=== PATIENT | female | born 1980 | race Two or more races ===

== ENCOUNTER 2020-10-19 08:50 | Outpatient (REF) | payer OTHER, SELFPAY | END 2020-10-19 08:51 | disposition home or self-care (01) | LOC: HO.HMGCLDS 08:50 | PROVIDERS: PCP Internal Medicine; Visit Provider Internal Medicine | DX: Z13.89 Encounter for screening for other disorder (principal) ==

== ENCOUNTER 2020-10-19 08:52 | Outpatient (REF) | payer OTHER, SELFPAY ==
[2020-10-19 11:22] LABS: MANUAL DIFF FLAG NO
[2020-10-19 11:38] LABS: Basophils Percent Auto 0.5 % (0-2); Eosinophils Absolute Auto 0.1 X10*3/uL (0.0-0.4); Eosinophils Percent Auto 2.1 % (0-4); Hematocrit 36.9 % (37-47); Hemoglobin 12.3 g/dl (12.0-16.0); Imm Gran Abs Auto 0.01 X10*3/uL (0.00-0.03); Imm Gran Pct Auto 0.2 % (0.0-0.4); Lymphocytes Absolute Auto 2.6 X10*3/uL (1.2-4.9); Lymphocytes Percent Auto 42.5 % (20-40); Mean Corpuscular HGB Conc 33.3 g/dl (31.0-35.0); Mean Corpuscular Hemoglobin 30.3 pg (27.0-33.0); Mean Corpuscular Volume 90.9 fL (80-98); Monocytes Absolute Auto 0.7 X10*3/uL (0.1-1.2); Monocytes Percent Auto 11.5 % (2-11); Neutrophils Absolute Auto 2.6 X10*3/uL (2.0-8.3); Neutrophils Percent Auto 43.2 % (45-73); Platelet Count 248 X10*3/uL (160-400); Red Blood Count 4.06 X10*6/uL (4.20-5.50); Red Cell Distribution Width 12.8 % (11.0-16.0); White Blood Count 6.1 X10*3/uL (4.8-10.8)
[2020-10-19 12:23] LABS: Alanine Aminotransferase 20 U/L (0-31); Albumin Level 4.2 g/dL (3.5-5.0); Alkaline Phosphatase 56 U/L (39-117); Anion Gap 12 (12-20); Aspartate Amino Transferase 17 U/L (5-31); Bilirubin Total 0.6 mg/dL (0.0-1.0); Blood Urea Nitrogen 13 mg/dL (9-16); Calcium 9.1 mg/dL (8.4-10.2); Carbon Dioxide 27 mmol/L (22-29); Chloride 105 mmol/L (96-108); Cholesterol 184 mg/dL; Estimated Glomerular Filt Rate > 60; Glucose Fasting 96 mg/dL (60-99); HDL Cholesterol 88 mg/dL; Iron 124 mcg/dL (30-160); LDL Cholesterol Calculated 88 mg/dl; Percent Iron Saturation 38 % (15-50); Potassium 4.1 mmol/L (3.3-5.1); Sodium 140 mmol/L (135-145); Total Iron Binding Capacity 326 mcg/dL (228-428); Total Protein 7.1 g/dL (6.5-8.0); Triglycerides 41 mg/dL; Unsaturated Iron Binding 202 ug/dL
[2020-10-24 02:36] LABS: HPV mRNA E6/E7 Not Detected (Not Detected)
== END 2020-10-19 08:53 | disposition home or self-care (01) ==
LOC: HO.LAB 08:52
PROVIDERS: Visit Provider Internal Medicine
DX: Z00.00 Encounter for general adult medical examination without abnormal findings (principal); Z12.4 Encounter for screening for malignant neoplasm of cervix; Z11.51 Encounter for screening for human papillomavirus (HPV); J45.909 Unspecified asthma, uncomplicated
CPT/HCPCS: 36415; 80053; 80061; 83540; 84443; 85025; 87624; 88142

== ENCOUNTER 2021-01-03 16:21 | Outpatient (REF) | payer OTHER, SELFPAY ==
[2021-01-04 09:54] LABS: CT PCR NOT DETECTED (Not Detect.); NG PCR NOT DETECTED (Not Detect.)
== END 2021-01-03 16:22 | disposition home or self-care (01) ==
LOC: HO.LNP 16:21
PROVIDERS: Visit Provider Internal Medicine
DX: N76.0 Acute vaginitis (principal)
CPT/HCPCS: 87491; 87591

== ENCOUNTER 2023-09-08 12:48 | Outpatient (AMB) | payer OTHER, SELFPAY ==
[2023-09-08 12:52] VITALS: BP 108/66; PULSE 72; O2SAT 98; BMI 28.5
--- NOTE | 2023-09-08 12:52 | MHC.PC.OV ---
Vital Signs 09/08/23 12:52 Height 4 ft 11 in Weight 141 lb BMI 28.5 BP 108/66 Blood Pressure Location Lt brachial Position Sitting Pulse 72 Pulse Source Pulse Oximeter Pulse Oximetry (%) 98 Oxygen Delivery Method Room Air Intake Visit Reasons: Asthma Intake Note: Pt is here today for a follow up visit. Allergies levofloxacin [Levaquin] Allergy (Unknown, Verified 09/08/23 12:55) stomach pain vomiting Medication List - Last Reconciled 09/08/23 by Sue Gallego MD albuterol sulfate 90 mcg/actuation 2 puffs inhalation Q6H fluticasone furoate-vilanterol 100-25 mcg/dose (Breo Ellipta) 1 ea PO DAILY lorazepam 0.5 mg PO DAILY PRN montelukast 10 mg PO DAILY Tobacco use date assessed: 09/08/23 Dental Screening Dental Screen Date: 09/08/23 Did you have a dental visit in the last 12 months?: Yes Did you have a dental problem in the last 6 months where you did not have access to dental care?: No Was dental information given to patient?: Patient has dentist HPI Asthma HPI Details Patient presents complaining of worsening asthma control for the last 2 weeks. Patient has not been using Breo for over a year. She has been using albuterol inhaler only occasionally but more recently over last 2 weeks. Patient has stopped taking montelukast a year ago. She has been exposed to a cat recently and she is allergic to cats. She is scheduled to have abdominoplasty in [place] in September. [facility] Medical History UTI (urinary tract infection) Vaginitis Bunion of great toe of right foot Blepharitis of eyelid of left eye Memory deficit Annual physical exam Allergic rhinitis Asthma Anxiety Surgical History Hx of section H/O bilateral breast reduction surgery No pertinent past surgical history Family History Mother Diabetes Asthma Father Colon cancer Hypertension Social History Housing: House Alcohol intake: current Alcohol intake frequency: holidays/special occasions only Patient Tobacco Use Status: Never used Tobacco e-Cigarette/Vaping Use: Never Used Second Hand Smoke Exposure: No service: No Current occupational status: employed 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 1. Little interest or pleasure in doing things: several days 2. Feeling down, depressed, or hopeless: several days 3. Trouble falling or staying asleep, or sleeping too much: more than half the days 4. Feeling tired or having little energy: several days 5. Poor appetite or overeating: several days 6. Feeling bad about yourself - or that you are a failure or have let yourself or your family down: several days 7. Trouble concentrating on things, such as reading the newspaper or watching television: several days 8. Moving or speaking so slowly that other people could have noticed. Or the opposite - being so fidgety or restless that you have been moving around a lot more than usual: not at all 9. Thoughts that you would be better off or of hurting yourself in some way: not at all Total score: 8 Depression Screening Interpretation: Negative Depression Screening Done: Yes Source: Developed by Drs. Darrel Lamb, Tori Miguel, Josep Pink and colleagues, with an educational eleno from [employer]. Thrive Questionnaire Date Thrive assessed: 09/08/23 I am a: Patient What is your living situation today?: I have a steady place to live Within the past 12 months, did the food you bought not last and you didn't have the money to get more?: Never true Within the past 12 months, did you worry whether your food would run out before you got money to buy more?: Sometimes True Do you have trouble paying for medicines?: No Do you have trouble getting transportation to medical appointments?: No Do you have trouble paying your heating and electricity bill?: No Do you have trouble taking care of your child, family member or friend?: No Do you have trouble with day-to-day activities such as bathing, preparing meals, shopping, managing finances, etc.?: No Are you currently unemployed and looking for a job?: No Are you interested in more education?: No Please select the resources that you would like help with: None THRIVE Score: 1 AUDIT C Alcohol Use Questionnaire (AUDIT-C) 1. How often do you have a drink containing alcohol?: Monthly or less 2. How many drinks containing alcohol do you have on a typical day when you are drinking?: 1 or 2 3. How often do you have six or more drinks on one occasion?: Never Total Score: 1 RUFINA-7 AMB Questionnaire RUFINA-7 Date RUFINA - 7 assessed: 09/08/23 Feeling nervous, anxious, or on edge: 2 = More than half the days Not being able to stop or control worryin = Several days Worrying too much about different things: 2 = More than half the days Trouble relaxin = Several days Being so restless that it is hard to sit still: 0 = Not at all Becoming easily annoyed or irritable: 1 = Several days Feeling afraid as if something awful might happen: 0 = Not at all Total RUFINA-7 score (0-4 normal; 5-9 mild; 10-14 moderate; 15-21 severe): 7 Source: Developed by Drs. Darrel Lamb, Tori Miguel, Josep Pink and colleagues, with an educational eleno from [employer]. ACT Questionnaire In the past 4 weeks, how much of the time did your asthma keep you from getting as much done at work, school or at home?: A little of the time During the past 4 weeks, how often have you had shortness of breath?: More than once a day During the past 4 weeks, how often did your asthma symptoms wake you up at night or earlier than usual in the morning?: 2-3 nights a week During the past 4 weeks, how often have you had to use your rescue inhaler or nebulizer medication?: 2-3 times a week How would you rate your asthma control during the past 4 weeks?: Poorly controlled Score: 12 Review of Systems Const All systems reviewed & are unremarkable except as noted in HPI and below Reports no additional complaints Eyes Reports no additional complaints ENT Reports no additional complaints Card Reports no additional complaints Resp Reports no additional complaints GI Reports no additional complaints Reports no additional complaints Physical exam (Primary Care) Vital Signs: Last Vital Signs Pulse 72 09/08/23 12:52 BP 108/66 09/08/23 12:52 Pulse Ox 98 09/08/23 12:52 Oxygen Delivery Method Room Air 09/08/23 12:52 BMI result Body Mass Index 28.5 Tobacco/Smoking Status: Tobacco use Status Tobacco use date assessed 09/08/23 09/08/23 13:02 Patient Tobacco Use Status Never used Tobacco 09/08/23 13:02 e-Cigarette/Vaping Use Never Used 09/08/23 13:02 PHQ-9: PHQ-9 Score PHQ-9: Total score 8 09/08/23 13:42 Depression Screening Interpretation: Negative Thrive Assessment: Date of Thrive Assessment Date Thrive assessed 09/08/23 09/08/23 13:41 Const General: no acute distress HENMT Mouth: Normal oral and palatal mucosa present Resp Effort & Inspection: normal respiratory effort Auscultation: clear to auscultation bilaterally Cardio Rhythm: regular rhythm Heart sounds: S1 normal heart sound present and S2 normal heart sound present GI Inspection: Yes normal to inspection Palpation (GI): Soft to palpation Assessment and Plan Assessment & Plan (1) Annual physical exam: Code(s): Z00.00 - Encounter for general adult medical examination without abnormal findings Plan: Patient will return for physical with a fasting labs before (2) Asthma: Code(s): J45.909 - Unspecified asthma, uncomplicated Plan: restart Breo and montelukast. Patient will use albuterol as needed she will follow-up in 2 months Orders: Orders UA w Microscopic 1 Month J45.909 - Unspecified asthma, uncomplicated, Z00.00 - Encounter for general adult medical examination without abnormal findings Comprehensive Harris. Panel Fast 1 Month J45.909 - Unspecified asthma, uncomplicated, Z00.00 - Encounter for general adult medical examination without abnormal findings Complete Blood Count Auto Diff 1 Month J45.909 - Unspecified asthma, uncomplicated, Z00.00 - Encounter for general adult medical examination without abnormal findings Lipid Panel 1 Month J45.909 - Unspecified asthma, uncomplicated, Z00.00 - Encounter for general adult medical examination without abnormal findings TSH reflex Free T4 1 Month J45.909 - Unspecified asthma, uncomplicated, Z00.00 - Encounter for general adult medical examination without abnormal findings Medications: New meloxicam 15 mg PO DAILY 20 tabs 0RF Refilled montelukast 10 mg PO DAILY 90 tabs 3RF fluticasone furoate-vilanterol 100-25 mcg/dose (Breo Ellipta) 1 ea PO DAILY 60 caps 3RF J45.909 - Unspecified asthma, uncomplicated Coding Level of Care Code Est Pt Level 3 (37127) Diagnoses Annual physical exam Z00.00 Asthma J45.909
== END 2023-09-08 15:15 | disposition home or self-care (01) ==
PROVIDERS: PCP Internal Medicine; Visit Provider Internal Medicine
DX: J45.909 Unspecified asthma, uncomplicated (principal)
CPT/HCPCS: 99213

== ENCOUNTER 2023-09-29 09:42 | Outpatient (REF) | payer OTHER, SELFPAY ==
--- NOTE | 2023-09-29 11:38 | PFT_ITS ---
Flows: FEV1: 83 % of predicted at 2.06 L FVC: 85 % of predicted at 2.57 L FEV1/FVC: 80 % Bronchodilator response: Absent Volumes: Total lung capacity: 91 % of predicted at 3.97 L Residual volume: 127 % of predicted at 1.43 L Slow vital capacity: 78 % of predicted at 2.54 L Expiratory reserve volume: 56 % of predicted at 0.52 L Diffusion capacity: Normal Impression: No obstructive or restrictive ventilatory defect. No bronchodilator response. Increased residual volume suggests air trapping. MTDD
== END 2023-09-29 09:43 | disposition home or self-care (01) ==
LOC: HO.RESP 09:42
PROVIDERS: PCP Internal Medicine; Visit Provider Internal Medicine
DX: J45.909 Unspecified asthma, uncomplicated (principal)
CPT/HCPCS: 94010; 94640; 94727; 94729

== ENCOUNTER → 2023-09-29 11:38 | Outpatient (BNV) | payer OTHER, SELFPAY | PROVIDERS: PCP Internal Medicine; Visit Provider Internal Medicine Pulmonary Disease | DX: J45.909 Unspecified asthma, uncomplicated (principal) | CPT/HCPCS: 94060; 94727; 94729 ==

== ENCOUNTER 2023-10-03 08:27 | Outpatient (REF) | payer OTHER, SELFPAY ==
[2023-10-03 11:08] LABS: MANUAL DIFF FLAG NO
[2023-10-03 11:18] LABS: Basophils Percent Auto 0.4 % (0-2); Eosinophils Absolute Auto 0.2 X10*3/uL (0.0-0.4); Eosinophils Percent Auto 3.6 % (0-4); Hematocrit 34.7 % (37.0-47.0); Hemoglobin 11.7 g/dl (12.0-16.0); Imm Gran Abs Auto 0.02 X10*3/uL (0.00-0.03); Imm Gran Pct Auto 0.4 % (0.0-0.4); Lymphocytes Absolute Auto 1.6 X10*3/uL (1.2-4.9); Lymphocytes Percent Auto 28.6 % (20-40); Mean Corpuscular HGB Conc 33.7 g/dl (31.0-35.0); Mean Corpuscular Hemoglobin 29.8 pg (27.0-33.0); Mean Corpuscular Volume 88.5 fL (80.0-98.0); Mean Platelet Volume 11.1 fL (9.4-12.3); Monocytes Absolute Auto 0.6 X10*3/uL (0.1-1.2); Monocytes Percent Auto 10.5 % (2-11); Neutrophils Absolute Auto 3.2 x10*3/uL (2.0-8.3); Neutrophils Percent Auto 56.5 % (45-73); Platelet Count 254 X10*3/uL (160-400); Red Blood Count 3.92 X10*6/uL (4.20-5.50); Red Cell Distribution Width 12.3 % (11.0-16.0); White Blood Count 5.6 X10*3/uL (4.8-10.8)
[2023-10-03 11:19] LABS: Appearance Urine Clear; Color Urine Yellow; Glucose Urine UA Negative (Negative); Leukocyte Esterase Urine Negative (Negative); Nitrite Urine Negative (Negative); PH 6.5 (5.0-9.0); Specific Gravity - Urine 1.025 (1.005-1.025); UMIC TRIGGER UA YES; Urine Blood Moderate (2+) (Negative); Urine Ketones Negative (Negative); Urine Protein Negative (Neg-Trace)
[2023-10-03 11:23] LABS: Bacteria Urine None Seen (None Seen); Hyaline Casts Urine 0-2 /LPF (0-2); Squamous Epithelial Cell Urine 0-2 /HPF (0-2); WBC Urine 0-5 /HPF (0-5)
[2023-10-03 12:11] LABS: Alanine Aminotransferase 17 U/L (0-31); Albumin Level 4.2 g/dL (3.5-5.0); Alkaline Phosphatase 59 U/L (39-117); Anion Gap 12 (12-20); Aspartate Amino Transferase 17 U/L (5-31); Bilirubin Total 0.5 mg/dL (0.0-1.0); Blood Urea Nitrogen 11 mg/dL (9-16); Calcium 9.1 mg/dL (8.4-10.2); Carbon Dioxide 22 mmol/L (22-29); Chloride 109 mmol/L (96-108); Cholesterol 176 mg/dL (<200); Estimated Glomerular Filt Rate > 60; Glucose Fasting 95 mg/dL (60-99); HDL Cholesterol 76 mg/dL (>40); LDL Cholesterol Calculated 94 mg/dL (<100); Potassium 3.7 mmol/L (3.3-5.1); Sodium 139 mmol/L (135-145); Total Protein 7.3 g/dL (6.5-8.0); Triglycerides 34 mg/dL (<150)
[2023-10-03 12:28] LABS: TSH reflex Free T4 0.74 uIU/mL (0.32-4.0)
== END 2023-10-03 08:28 | disposition home or self-care (01) ==
LOC: HO.HMGCLDS 08:27
PROVIDERS: PCP Internal Medicine; Visit Provider Internal Medicine
DX: Z00.00 Encounter for general adult medical examination without abnormal findings (principal); J45.909 Unspecified asthma, uncomplicated
CPT/HCPCS: 36415; 80053; 80061; 81001; 84443; 85025

== ENCOUNTER 2023-10-09 11:59 | Outpatient (AMB) | payer OTHER, SELFPAY ==
[2023-10-09 12:02] VITALS: BP 96/64; PULSE 69; O2SAT 98; BMI 29.3
--- NOTE | 2023-10-09 12:02 | A.OFFPC_ITS ---
Vital Signs 10/09/23 12:02 Height 4 ft 11 in Weight 145 lb BMI 29.3 BP 96/64 Blood Pressure Location Rt brachial Position Sitting Pulse 69 Pulse Source Pulse Oximeter Pulse Oximetry (%) 98 Oxygen Delivery Method Room Air Intake Visit Reasons: Pre op surgery on 10/19/23 Intake Note: Pt is here today for a a pre op visit. Allergies levofloxacin [Levaquin] Allergy (Unknown, Verified 09/08/23 12:55) stomach pain vomiting Tobacco use date assessed: 09/08/23 Dental Screening Dental Screen Date: 09/08/23 HPI Pre op surgery on 10/19/23 HPI Details Pt presents for pre op for abdominoplasty. Asthma is well controlled on Breo and montelukast. Patient had pulmonary function tests done. She denies shortness or breath cough wheezing. Patient has been taking iron supplement for chronic borderline iron deficiency due to heavy menses. [facility] Medical History (Updated 10/09/23 @ 12:40 by Sue Gallego MD) UTI (urinary tract infection) Vaginitis Bunion of great toe of right foot Blepharitis of eyelid of left eye Memory deficit Annual physical exam Allergic rhinitis Asthma Anxiety Surgical History Hx of section H/O bilateral breast reduction surgery No pertinent past surgical history Family History Mother Diabetes Asthma Father Colon cancer Hypertension Social History Housing: House Alcohol intake: current Alcohol intake frequency: holidays/special occasions only Patient Tobacco Use Status: Never used Tobacco e-Cigarette/Vaping Use: Never Used Second Hand Smoke Exposure: No service: No Current occupational status: employed 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 Darrel Lamb, Tori Miguel, Josep [employer] and colleagues, with an educational eleno from [employer]. Review of Systems Const All systems reviewed & are unremarkable except as noted in HPI and below ENT Reports no additional complaints Card Reports no additional complaints Resp Reports no additional complaints GI Reports no additional complaints Reports no additional complaints Physical exam (Primary Care) Vital Signs: Last Vital Signs Pulse 69 10/09/23 12:02 BP 96/64 10/09/23 12:02 Pulse Ox 98 10/09/23 12:02 Oxygen Delivery Method Room Air 10/09/23 12:02 BMI result Body Mass Index 29.3 Tobacco/Smoking Status: Tobacco use Status Tobacco use date assessed 09/08/23 10/09/23 12:03 Patient Tobacco Use Status Never used Tobacco 10/09/23 12:03 e-Cigarette/Vaping Use Never Used 10/09/23 12:03 Thrive Assessment: Date of Thrive Assessment Date Thrive assessed 09/08/23 10/09/23 12:03 Const General: no acute distress HENMT Head: Yes normal to inspection Ears: hearing grossly normal bilaterally Face and sinus: Yes normal facial exam Eyes General: appearance normal, both eyes and all related structures Neck Neck: Yes no lymphadenopathy and Yes supple Resp Effort & Inspection: normal respiratory effort Auscultation: clear to auscultation bilaterally Cardio Rhythm: regular rhythm Heart sounds: S1 normal heart sound present and S2 normal heart sound present GI Inspection: Yes normal to inspection Palpation (GI): Soft to palpation Percussion: Yes normal to percussion Auscultation: normal bowel sounds Assessment and Plan Assessment & Plan (1) Annual physical exam: Code(s): Z00.00 - Encounter for general adult medical examination without abnormal findings Plan: Well-balanced diet regular physical activity discussed with the patient. (2) Anemia: Code(s): D64.9 - Anemia, unspecified Plan: Patient will continue iron supplement (3) Asthma: Comment: PFT 09/22 FEV1 84% Code(s): J45.909 - Unspecified asthma, uncomplicated Plan: Continue Breo and montelukast and albuterol p.r.n. Plan Patient is medically cleared for abdominoplasty Orders: Orders IRON PROFILE Today D64.9 - Anemia, unspecified, Z00.00 - Encounter for general adult medical examination without abnormal findings Prolactin, Total and Monomeric Today D64.9 - Anemia, unspecified, Z00.00 - Encounter for general adult medical examination without abnormal findings Vitamin B12 and Folate Today D64.9 - Anemia, unspecified, Z00.00 - Encounter for general adult medical examination without abnormal findings Coding Level of Care Code Est Pt Level 3 (48745) Diagnoses Annual physical exam Z00.00 Anemia D64.9 Asthma J45.909
== END 2023-10-09 12:41 | disposition home or self-care (01) ==
PROVIDERS: PCP Internal Medicine; Visit Provider Internal Medicine
DX: Z01.818 Encounter for other preprocedural examination (principal); D64.9 Anemia, unspecified; J45.909 Unspecified asthma, uncomplicated
CPT/HCPCS: 99213

== ENCOUNTER 2023-10-09 12:35 | Outpatient (REF) | payer OTHER, SELFPAY ==
[2023-10-09 16:23] LABS: Iron 93 mcg/dL (30-160); Percent Iron Saturation 34 % (15-50); Total Iron Binding Capacity 273 mcg/dL (228-428); Unsaturated Iron Binding 180 ug/dL
[2023-10-09 16:56] LABS: Vitamin B12 505 pg/mL (200-900)
[2023-10-16 19:09] LABS: Prolactin Monomeric 5.8 ng/mL (3.2-25.2); Prolactin, Total 23.6 ng/mL
== END 2023-10-09 12:36 | disposition home or self-care (01) ==
LOC: HO.HMGCLDS 12:35
PROVIDERS: PCP Internal Medicine; Visit Provider Internal Medicine
DX: Z00.00 Encounter for general adult medical examination without abnormal findings (principal); D64.9 Anemia, unspecified
CPT/HCPCS: 36415; 82607; 82746; 83540; 84146

== ENCOUNTER 2023-11-20 14:35 | Outpatient (AMB) | payer OTHER, SELFPAY ==
[2023-11-20 14:40] VITALS: BP 108/72; PULSE 72; TEMP 36.6; O2SAT 98
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
--- OUTSIDE RECORDS SUMMARY | 2023-11-26 06:58 | XMS_ITS | Continuity of Care Document ---
Author Organization [facility] Address [address] [place] [address]- Care Team Providers Care Automotive Service Advisor Name Role Phone Sue Gallego MD Primary Care Physician [phone] Encounter [facility] Date(s): 11/27/21 - 01/27/[address] [address] Discharge Disposition: A-D/C Home Attending Physician: Sue Gallego MD Admitting Physician: Sue Gallego MD Referring Physician: Sue Gallego MD Allergies, Adverse Reactions, Alerts Substance Reaction Severity Status [facility] Active Immunizations Given and Recorded Vaccine Date Status Refusal Reason SARS-CoV-2 (COVID-19) mRNA-1273 vaccine 04/20/21 R ecorded SARS-CoV-2 (COVID-19) mRNA-1273 vaccine 07/02/20 R ecorded SARS-CoV-2 (COVID-19) mRNA-1273 vaccine 06/04/20 R ecorded Medications Albuterol/Ipratropium Inhaler PRN, Refills 0, Maintenance, 02/05/16 15:19:41 Start Date: 02/05/16 Status: Ordered Breo Ellipta Inhalation, Daily, 0 Refills, Maintenance, 02/05/16 15:07:07 Start Date: 02/05/16 Status: Ordered PredniSONE By Mouth, Daily, 0 Refills, Maintenance, 06/23/21 15:52:00 EST, Partial fill upon patient request if the prescription is for a schedule II opioid drug. Start Date: 06/23/21 Status: Ordered Singulair By Mouth, Daily, 0 Refills, Maintenance, 06/23/21 15:51:00 EST, Partial fill upon patient request if the prescription is for a schedule II opioid drug. Start Date: 06/23/21 Status: Ordered Problem List Condition Effective Dates Status Health Status Inform ant Asthma(Confirmed) Active H/O: multiple allergies(Confirmed) Active Care Team Personnel Name: Sue Gallego MD Address: [address], [place] [address]
--- OUTSIDE RECORDS SUMMARY | 2023-11-26 06:58 | XMS_ITS | Continuity of Care Document ---
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 & Belongings ?? 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 Glasses ?? Inhaler Valuables Sent Home ? Rings ? Valuables Sent to Security ? Other Discharge Information ? Case Management Discharge Plan?? Discharge Plan?? Discharge Agency Information?? Discharge Level of Care at Discharge: Inpatient Rehab Facility/Unit Name of Agency #1: [facility] Discharge Transportation Arranged: [facility] [address] [facility] ??[phone] Agency Senior Center Director #1: Admissions Mode of Transportation Arranged: Ambulance Service Categories #1: Occupational Therapy, Physical Therapy, Mcc, Tablet Making Machine Operator Helper Discharge Arranged Transport Date/Time: 11/07/23 12:00:00 Name of Person Notified of Transfer: Dominic Dahl Discharge Nursing Homes/Rehab Facilities: [facility] Name of Receiving Clinician/Provider: A provider will be assigned to you at the facility ?? Phone Number of Receiving Facility: [facility] ?? Pulmonary Rehab Status?? Pulmonary Rehab Discharge Status?? Respiratory Rate: 16 br/min ? Common Emergency Awareness Tips IS IT A STROKE? Act FAST and Check for these signs: FACE Does the face look uneven? ARM Does one arm drift down? SPEECH Does their speech sound strange? TIME Call at any sign of stroke ?? Heart Attack Signs Chest discomfort: Most heart attacks involve discomfort in the center of the chest and lasts more than a few minutes, or goes away and comes back. It can feel like uncomfortable pressure, squeezing, fullness or pain. Discomfort in upper body: Symptoms can include pain or discomfort in one or both arms, back, neck, jaw or stomach. Shortness of breath: With or without discomfort. Other signs: Breaking out in a cold sweat, nausea, or lightheaded. Remember, MINUTES DO MATTER. If you experience any of these heart attack warning signs, call to get immediate medical attention! ?? Smoking can increase your chances of developing chronic health problems and can cause harmful effects to other family members in your house. If you smoke, you are strongly encouraged to quit. Please call [email or web address] Link at [phone] or [phone] ([phone]) or log in to [email or web address] for referrals to smoking cessation programs. ?? 811 Suicide & Crisis Lifeline is available 22/12 if you or someone you know needs to find a reason to keep living. By calling 283 you'll be connected to a skilled, trained counselor at a crisis center in your area. INPATIENT DISCHARGE INSTRUCTIONS SIGNATURE PAGE DOMINIC DAHL Location:[facility] Registration Date and Time:11/03/2023 16:42 EDT Primary Care Physician: Sue Gallego MD, Attending Physician: Dl Lopez MD, I DOMINIC DAHL, have received the above patient education materials/instructions and have verbalized understanding. If ambulance or transport services are being used I further acknowledge being given a choice of service. ?? If you need to contact me, please call me at this number: . 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 Name: 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 Signature: Relationship to Patient: Witness Name/Signature: Date: * Dl Lopez MD: PERFORM, SIGN, VERIFY Event Display: Patient Education Handout Authored Date: [id number] Patient Care team information Care Team Personnel Name: Sue Gallego MD Position: [facility] Physician - Primary Care Member Role: PCP Address: Address: [address] [place] [address]- Name: Josselyn Mayes RN Position: [facility] SN RN Member Role: Primary Care Nurse Name: Veronica Gunderson RN Position: [facility] RN Member Role: Primary Care Nurse Name: Zohreh Lorenzo RN Position: [facility] RN Member Role: Primary Care Nurse Name: Cr Pineda RN Position: [facility] RN Member Role: Primary Care Nurse Care Team Related Persons Name: MANOJ YARBROUGH Address: home [address] [place] [address] Name: PATI CHAVARRIA Address: home [address] [place] [address] Name: PRERNA FINCH Address: home [address] [place] [address]
--- OUTSIDE RECORDS SUMMARY | 2023-11-26 06:58 | XMS_ITS | Continuity of Care Document ---
Author Organization [facility] Address [address] [place] [address]- Care Team Providers Care Medical Photographer Name Role Phone Sue Gallego MD Primary Care Physician [phone] [place] [facility] [place] 11/18/21 - 12/18/[address] [address]- Allergies, Adverse Reactions, Alerts Substance Reaction Severity [...]
--- OUTSIDE RECORDS SUMMARY | 2023-11-26 06:58 | XMS_ITS | Continuity of Care Document ---
Author Organization [facility] Address [address] [place] [address]- Care Team Providers Care Supervisor Forming Department Name Role Phone Sue Gallego MD Primary Care Physician Encounter [facility] [place] Date(s): 11/27/21 - 12/27/[address] [address] Attending Physician: [id number] Admitting Physician: Admtr, Ruslan8 Referring Physician: Admtr, Ar8 Allergies, Adverse Reactions, Alerts Substance Reaction Severity [...]
--- OUTSIDE RECORDS SUMMARY | 2023-11-26 06:58 | XMS_ITS | Continuity of Care Document ---
Author Organization [facility] Address [address] [place] [address]- Care Team Providers Care Hook Loader Name Role Phone Sue Gallego MD Primary Care Physician [id number] Date(s): 10/19/21 - 11/24/[address] [address] Attending Physician: Sue Gallego MD Admitting Physician: [...] 02/05/16 15:07:07 Start Date: 02/05/16 Status: Ordered ketoconazole 2% topical cream 1 application, Topically, Daily, for 14 days, Apply to affected skin as needed, # 30 Gm, 0 Refills,Acute 12/02/21 11:02:00 EDT, 11/18/21 11:02:00 EDT, [facility] Partial fillupon patient request if the prescription is for a s... Start Date: 11/18/21 Stop Date: 12/02/21 Status: Ordered PredniSONE By Mouth, Daily, 0 [...]
--- OUTSIDE RECORDS SUMMARY | 2023-11-26 06:58 | XMS_ITS | Continuity of Care Document ---
Author Organization [facility] Address [address] [place] [address]- Care Team Providers Care Manager Of Selection And Assessment Name Role Phone Sue Gallego MD Primary Care Physician Encounter [facility] Date(s): 04/08/23 - 05/08/[address] [email or web address] Attending Physician: Admtr, Ar8 Admitting Physician: Admtr, Ar8 Referring Physician: Admtr, Ar8 Allergies, Adverse Reactions, [...] Date: 06/23/21 Status: Ordered Problem List Condition Confirmation Course Effective Dates Status Health St atus Informant Asthma Confirmed Active H/O: multiple allergies Confirmed Active Patient Care team information Care Team Personnel Name: Sue Gallego MD Position: [facility] Physician - Primary Care Member Role: PCP Address: Address: [address] [place] [address]- Name: Josselyn Mayes RN Position: [facility] SN RN Member Role: Primary Care Nurse Name: Zohreh Lorenzo RN Position: [facility] RN Member Role: Primary Care Nurse Care Team Related Persons Name: MANOJ YARBROUGH Address: home [address] [place] [address] Name: PATI CHAVARRIA Address: [address] [place] [address] Name: PRERNA FINCH Address: home [address] [place] [address]
--- OUTSIDE RECORDS SUMMARY | 2023-11-26 06:58 | XMS_ITS | Continuity of Care Document ---
Author Organization [facility] Address [address] [place] [address]- Care Team Providers Care Locomotive Operator Helper Name Role Phone Sue Gallego MD Primary Care Physician [phone] [place] [facility] [place] Date(s): 05/11/19 - 05/21/[address] [address] Attending Physician: Raina Hawk Admitting Physician: AdmRaina godoy Referring Physician: Admtr, Ar8 Allergies, Adverse Reactions, Alerts Substance Reaction Severity Status Levaquin Active Medications Albuterol/Ipratropium Inhaler PRN, Refills 0, Maintenance, 02/05/16 15:19:41 Start Date: 02/05/16 Status: Ordered Breo Ellipta Inhalation, Daily, 0 Refills, Maintenance, 02/05/16 15:07:07 Start Date: 02/05/16 Status: Ordered Problem List Condition Effective Dates Status Health Status Inform ant Asthma(Confirmed) Active H/O: multiple allergies(Confirmed) Active
--- OUTSIDE RECORDS SUMMARY | 2023-11-26 06:58 | XMS_ITS | Continuity of Care Document ---
Author Organization [facility] Address [address] [place] [address]- Care Team Providers Care School Age Teacher Name Role Phone Sue Gallego MD Primary Care Physician [phone] Encounter [facility] Date(s): 05/16/20 - 06/15/[address] [address]- Attending Physician: Raina Hawk Admitting Physician: Raina Hawk Referring Physician: AdmtrRaina Allergies, Adverse Reactions, Alerts Substance Reaction Severity Status Levaquin Active Medications Albuterol/Ipratropium Inhaler PRN, Refills 0, Maintenance, 02/05/16 15:19:41 Start Date: 02/05/16 Status: Ordered Breo Ellipta Inhalation, Daily, 0 Refills, Maintenance, 02/05/16 15:07:07 Start Date: 02/05/16 Status: Ordered Problem List Condition Effective Dates Status Health Status Inform ant Asthma(Confirmed) Active H/O: multiple allergies(Confirmed) Active
--- OUTSIDE RECORDS SUMMARY | 2023-11-26 06:58 | XMS_ITS | Continuity of Care Document ---
Author Organization [facility] Address [address] [place] [address]- Care Team Providers Care Machine Operator Cane Cutter Name Role Phone Sue Gallego MD Primary Care Physician Encounter [facility] Date(s): 06/30/19 - 06/30/[address] [address]- [facility] Attending Physician: Sue Gallego MD Allergies, Adverse Reactions, [...]
== END 2023-11-20 15:46 | disposition home or self-care (01) ==
PROVIDERS: PCP Internal Medicine; Visit Provider Physician Assistant
DX: I82.491 Acute embolism and thrombosis of other specified deep vein of right lower extremity (principal)
CPT/HCPCS: 99214

== ENCOUNTER 2023-11-20 15:02 | Outpatient (REF) | payer OTHER, SELFPAY ==
--- NOTE | ~2023-11-20 | US_ITS ---
EXAMINATION: US VENOUS ULTRASOUND WITH DOPPLER LOWER EXTREMITY, RIGHT CLINICAL INFORMATION: Pain in the right lower leg COMPARISON: None available. TECHNIQUE: Ultrasound of the deep veins is performed from the hip to the calf with compression sonography and color and pulse Doppler assessment. Spectral analysis with color-flow imaging is performed. FINDINGS: The common femoral vein is compressible and exhibits a normal phasic waveform; this suggests that the iliac veins are widely patent above. Within the proximal thigh, the visualized profunda femoris vein is normal. The examined greater saphenous vein and saphenofemoral junction are normal. Superficial femoral vein is patent in the proximal, mid and distal thigh. Popliteal vein is normal to the level of the trifurcation. On compression harvey scale and color Doppler images, the visualized posterior tibial vein is normal. There appears to be noncompressible occlusive thrombus involving a peroneal vein. No evidence of Mendoza's cyst. US/US venous duplex LE RT IMPRESSION: * There are imaging findings of deep vein thrombosis of a peroneal vein in the right calf. * No evidence of venous thrombosis in the femoral or popliteal veins. The critical test result was given to Jackie Corrales at 3:25 pm n 11/20/2023 by the US technologist and it was ascertained that the content and the importance of the findings was understood at the time of the direct communication.
== END 2023-11-20 15:03 | disposition home or self-care (01) ==
LOC: HO.HMGCX 15:02
PROVIDERS: PCP Internal Medicine; Visit Provider Physician Assistant
DX: M79.661 Pain in right lower leg (principal)
CPT/HCPCS: 93971

== ENCOUNTER 2023-11-26 09:50 | Outpatient (AMB) | payer OTHER, SELFPAY ==
[2023-11-26 09:57] VITALS: BP 100/64; PULSE 83; O2SAT 99; BMI 29.1
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
== END 2023-11-26 10:53 | disposition home or self-care (01) ==
LOC: HO.HMGC 09:50
PROVIDERS: PCP Internal Medicine; Visit Provider Internal Medicine
DX: S32.9XXA Fracture of unspecified parts of lumbosacral spine and pelvis, initial encounter for closed fracture (principal); S32.10XA Unspecified fracture of sacrum, initial encounter for closed fracture; I82.491 Acute embolism and thrombosis of other specified deep vein of right lower extremity; F41.9 Anxiety disorder, unspecified
CPT/HCPCS: 99214

== ENCOUNTER 2024-01-11 09:12 | Outpatient (AMB) | payer OTHER, SELFPAY ==
[2024-01-11 09:25] VITALS: BP 106/70; PULSE 82; O2SAT 98; BMI 30.1
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
== END 2024-01-11 10:15 | disposition home or self-care (01) ==
PROVIDERS: PCP Internal Medicine; Visit Provider Internal Medicine
DX: F41.9 Anxiety disorder, unspecified (principal); S32.9XXA Fracture of unspecified parts of lumbosacral spine and pelvis, initial encounter for closed fracture; S32.10XA Unspecified fracture of sacrum, initial encounter for closed fracture; I82.491 Acute embolism and thrombosis of other specified deep vein of right lower extremity
CPT/HCPCS: 99214

== ENCOUNTER 2024-02-08 09:45 | Outpatient (AMB) | payer OTHER, SELFPAY ==
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
[2024-02-08 09:47] VITALS: BP 102/66; PULSE 73; O2SAT 98; BMI 30.1
== END 2024-02-08 15:22 | disposition home or self-care (01) ==
PROVIDERS: PCP Internal Medicine; Visit Provider Internal Medicine
DX: S32.10XA Unspecified fracture of sacrum, initial encounter for closed fracture (principal); S32.9XXA Fracture of unspecified parts of lumbosacral spine and pelvis, initial encounter for closed fracture; I82.491 Acute embolism and thrombosis of other specified deep vein of right lower extremity; F41.9 Anxiety disorder, unspecified
CPT/HCPCS: 99214

== ENCOUNTER 2024-08-17 11:09 | Outpatient (AMB) | payer OTHER, SELFPAY ==
[2024-08-17 12:00] VITALS: BP 118/84; PULSE 95; TEMP 36.9; O2SAT 98; BMI 30.5
--- NOTE | 2024-08-17 12:00 | AM.OFFWIN_ITS ---
Intake Vital Signs 08/17/24 12:00 Height 4 ft 11 in Weight 151 lb 4 oz BMI 30.5 BP 118/84 Blood Pressure Location Lt brachial Position Sitting Pulse 95 Pulse Source Pulse Oximeter Temp 98.5 F Temp Source Oral Pulse Oximetry (%) 98 Oxygen Delivery Method Room Air Intake Visit Reasons: EP-cough Intake Note: Pt presents to the office today for c/o cough, chest congestion and facial pressure x4 days. Patient Tobacco Use Status: Never used Tobacco Allergies levofloxacin [Levaquin] Allergy (Unknown, Verified 08/17/24 12:00) stomach pain vomiting HPI EP-cough HPI Details This is a 43-year-old female patient who presents to the walk-in clinic today with a 5-6 day history of non productive, persistent cough.. She also reports facial/sinus pressure. She denies any fever or chills. Denies any GI symptoms. Denies any shortness of breath, however does experience coughing fits which can cause this. History of asthma. On Breo inhaler, and requesting albuterol inhaler refill. [facility] Medical History Anxiety UTI (urinary tract infection) Vaginitis Bunion of great toe of right foot Blepharitis of eyelid of left eye Memory deficit Annual physical exam Allergic rhinitis Asthma Surgical History Hx of section H/O bilateral breast reduction surgery No pertinent past surgical history Family History Mother Diabetes Asthma Father Colon cancer Hypertension Social History Housing: House Alcohol intake: current Alcohol intake frequency: holidays/special occasions only Patient Tobacco Use Status: Never used Tobacco e-Cigarette/Vaping Use: Never Used Second Hand Smoke Exposure: No service: No Current occupational status: employed 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 Current occupational exposures/hazards: No Cognitive needs: No Hearing needs: No Vision needs: Yes Review of Systems Const All systems reviewed & are unremarkable except as noted in HPI and below Physical Exam Vital Signs: Last Vital Signs Temp 98.5 F 08/17/24 12:00 Pulse 95 08/17/24 12:00 BP 118/84 08/17/24 12:00 Pulse Ox 98 08/17/24 12:00 Oxygen Delivery Method Room Air 08/17/24 12:00 BMI result Body Mass Index 30.5 Const General: cooperative, healthy appearing and no acute distress HEENT Head: Yes normal to inspection Ears: hearing grossly normal bilaterally and TM's normal bilaterally General nose exam: Normal external nose present Face and sinus: Yes sinus tenderness (frontal/maxillary) Mouth: Normal oral and palatal mucosa present Throat: Yes posterior oropharynx normal Neck Neck: Yes no lymphadenopathy Resp Effort & Inspection: normal respiratory effort, able to speak in complete sentences and Actively coughing Quality: actively coughing Auscultation: clear to auscultation bilaterally Cardio Rate: regular rate Rhythm: regular rhythm Skin General skin exam: no rashes or lesions noted Extrem General: Yes capillary refill normal and Yes no clubbing, cyanosis or edema Psych Appearance: grossly normal Mental Status: mental status grossly normal Speech and movement: Normal speech and movement present Assessment & Plan Assessment & Plan (1) Sinusitis, acute: Code(s): J01.90 - Acute sinusitis, unspecified Qualifiers: Sinusitis location: frontal Recurrence: non-recurrent Qualified Code(s): J01.10 - Acute frontal sinusitis, unspecified Plan: Will start her on a short course of prednisone and also azithromycin. We reviewed indications, use, possible side effects of these medications. She has taken both of these previously without any issue. I will refill her albuterol inhaler as requested. Declines viral testing. Advised her to return to the clinic as needed if she does not improve with treatment, or if symptoms worsen/new symptoms develop. She verbalizes understanding and agrees to plan. Work note provided. (2) Cough in adult: Code(s): R05.9 - Cough, unspecified Plan: As above Medications: New azithromycin For 250 mg dose pack: take 500 mg today (day 1), then 250 mg for 4 days (days 2-5) PO 6 tabs 0RF J06.9 - Acute upper respiratory infection, uns pecified albuterol sulfate 90 mcg/actuation 2 puffs inhalation Q6H 6.7 grams 1RF prednisone 20 mg PO BID 3 days 6 tabs 0RF J01.10 - Acute frontal sinusitis, unspecified, R05.9 - Cough, unspecified Coding Level of Care Code Est Pt Level 4 (34600) Diagnoses Acute non-recurrent frontal sinusitis J01.10 Sinusitis location: frontal Recurrence: non-recurrent Cough in adult R05.9
== END 2024-08-17 12:38 | disposition home or self-care (01) ==
PROVIDERS: PCP Internal Medicine; Visit Provider Nurse Practitioner Family
DX: J01.10 Acute frontal sinusitis, unspecified (principal); R05.9 Cough, unspecified

== ENCOUNTER → 2024-08-17 11:09 | Outpatient (BNVA) | payer OTHER, SELFPAY | PROVIDERS: PCP Internal Medicine; Visit Provider Nurse Practitioner Family ==

== ENCOUNTER 2024-09-12 11:42 | Outpatient (AMB) | payer OTHER, SELFPAY ==
[2024-09-12 11:47] VITALS: BP 110/74; PULSE 82; RESP 18; TEMP 36.7; O2SAT 99; BMI 30.3
--- NOTE | 2024-09-12 11:47 | MHC.PC.OV ---
Vital Signs 09/12/24 11:47 Height 4 ft 11 in Weight 150 lb BMI 30.3 BP 110/74 Blood Pressure Location Lt brachial Position Sitting Respiration 18 Pulse 82 Pulse Source Pulse Oximeter Temp 98.0 F Temp Source Oral Pulse Oximetry (%) 99 Oxygen Delivery Method Room Air Intake Visit Reasons: Followup allergies, needs work note Intake Note: Pt is here today for a follow up visit on allergies. Pt states that she needs a work note. Allergies levofloxacin [Levaquin] Allergy (Unknown, Verified 08/17/24 12:00) stomach pain vomiting cat dander Allergy (Verified 09/12/24 11:58) induces asthma,itchy dog dander Allergy (Verified 09/12/24 11:58) induces asthma, itchy Medication List - Last Reconciled 09/12/24 by Sue Gallego MD albuterol sulfate 90 mcg/actuation 2 puffs inhalation Q6H Breo Ellipta 200-25 mcg/dose (fluticasone furoate-vilanterol) 1 inh inhalation DAILY NS fluticasone furoate-vilanterol 100-25 mcg/dose (Breo Ellipta) 1 ea PO DAILY montelukast 10 mg PO DAILY sertraline 50 mg PO DAILY Tobacco use date assessed: 09/12/24 Dental Screening Dental Screen Date: 09/12/24 Did you have a dental visit in the last 12 months?: Yes Did you have a dental problem in the last 6 months where you did not have access to dental care?: No Was dental information given to patient?: Patient has dentist HPI Followup allergies, needs work note HPI Details Pt presents c/o recurrent asthma attacks 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 She has been taking Breo montelukast and [id number] Zyrtec but had to use albuterol inhaler more than 4 times a week for the last few weeks. Patient had immunotherapy in the past which was ineffective. [facility] Medical History (Updated 09/12/24 @ 12:28 by Sue Gallego MD) Deep vein blood clot of right lower extremity Pelvic fracture Anxiety UTI (urinary tract infection) Vaginitis Bunion of great toe of right foot Blepharitis of eyelid of left eye Memory deficit Annual physical exam Allergic rhinitis Asthma Surgical History Hx of section H/O bilateral breast reduction surgery No pertinent past surgical history Family History Mother Diabetes Asthma Father Colon cancer Hypertension Social History Housing: House Alcohol intake: current Alcohol intake frequency: holidays/special occasions only Patient Tobacco Use Status: Never used Tobacco e-Cigarette/Vaping Use: Never Used Second Hand Smoke Exposure: No service: No Current occupational status: employed 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 Darrel Lamb, Tori Miguel, Josep Pink and colleagues, with an educational eleno from [email or web address]. Review of Systems Const All systems reviewed & are unremarkable except as noted in HPI and below ENT Reports no additional complaints Card Reports no additional complaints Resp Reports no additional complaints GI Reports no additional complaints Reports no additional complaints Physical exam (Primary Care) Vital Signs: Last Vital Signs Temp 98.0 F 09/12/24 11:47 Pulse 82 09/12/24 11:47 Resp 18 09/12/24 11:47 BP 110/74 09/12/24 11:47 Pulse Ox 99 09/12/24 11:47 Oxygen Delivery Method Room Air 09/12/24 11:47 BMI result Body Mass Index 30.3 Tobacco/Smoking Status: Tobacco use Status Tobacco use date assessed 09/12/24 09/12/24 12:00 Patient Tobacco Use Status Never used Tobacco 09/12/24 11:47 e-Cigarette/Vaping Use Never Used 09/12/24 11:47 Thrive Assessment: Date of Thrive Assessment Date Thrive assessed 02/08/24 09/12/24 11:47 Const General: no acute distress HENMT Head: Yes normal to inspection Mouth: Normal oral and palatal mucosa present Resp Effort & Inspection: normal respiratory effort Auscultation: clear to auscultation bilaterally Cardio Rhythm: regular rhythm Heart sounds: S1 normal heart sound present and S2 normal heart sound present Coding Level of Care Code Est Pt Level 3 (79626) Diagnoses Allergic rhinitis due to animal (cat) (dog) hair and dander J30.81 Asthma J45.909 Assessment & Plan Assessment & Plan (1) Allergic rhinitis due to animal (cat) (dog) hair and dander: Comment: Immunotherapy was not effective Code(s): J30.81 - Allergic rhinitis due to animal (cat) (dog) hair and dander Category: Medical Plan: Continue montelukast and antihistamine (2) Asthma: Comment: PFT 09/22 FEV1 84% Code(s): J45.909 - Unspecified asthma, uncomplicated Category: Medical Plan: Increase Breo to 200 mcg continue montelukast antihistamine and follow-up in 1 month Medications: New Breo Ellipta 200-25 mcg/dose (fluticasone furoate-vilanterol) 1 inh inhalation DAILY 60 ea 3RF NS
== END 2024-09-12 12:23 | disposition home or self-care (01) ==
LOC: HO.HMCC 11:42
PROVIDERS: PCP Internal Medicine; Visit Provider Internal Medicine
DX: J30.81 Allergic rhinitis due to animal (cat) (dog) hair and dander (principal)

== ENCOUNTER → 2024-09-12 11:42 | Outpatient (BNVA) | payer OTHER, SELFPAY | PROVIDERS: PCP Internal Medicine; Visit Provider Internal Medicine ==

== ENCOUNTER 2024-10-25 11:02 | Outpatient (AMB) | payer OTHER, SELFPAY ==
[2024-10-25 11:05] VITALS: BP 106/68; PULSE 78; RESP 18; TEMP 36.7; O2SAT 98; BMI 30.7
--- NOTE | 2024-10-25 11:05 | MHC.PC.OV ---
Vital Signs 10/25/24 11:05 Height 4 ft 11 in Weight 152 lb BMI 30.7 BP 106/68 Blood Pressure Location Lt brachial Position Sitting Respiration 18 Pulse 78 Pulse Source Pulse Oximeter Temp 98.0 F Temp Source Oral Pulse Oximetry (%) 98 Oxygen Delivery Method Room Air Intake Visit Reasons: 1m follow up Intake Note: Pt is here today for 1 month follow up visit. Allergies levofloxacin [Levaquin] Allergy (Unknown, Verified 10/25/24 11:09) stomach pain vomiting cat dander Allergy (Verified 10/25/24 11:09) induces asthma,itchy dog dander Allergy (Verified 10/25/24 11:09) induces asthma, itchy Medication List - Last Reconciled 10/25/24 by Sue Gallego MD albuterol sulfate 90 mcg/actuation 2 puffs inhalation Q6H Breo Ellipta 200-25 mcg/dose (fluticasone furoate-vilanterol) 1 inh inhalation DAILY NS fluticasone furoate-vilanterol 100-25 mcg/dose (Breo Ellipta) 1 ea PO DAILY montelukast 10 mg PO DAILY sertraline 50 mg PO DAILY Tobacco use date assessed: 10/25/24 Dental Screening Dental Screen Date: 09/12/24 HPI 1m follow up HPI Details Pt pressents for f/u asthma, better controlled on Breo 200 mcg, except when exposed to allergens, like dogs/cats which happened last week for 3 days. Patient had to use albuterol inhaler daily. She is interested in seeing databases computer consultant to try immunotherapy. 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 Pelvic fracture Anxiety UTI (urinary tract infection) Vaginitis Bunion of great toe of right foot Blepharitis of eyelid of left eye Memory deficit Annual physical exam Allergic rhinitis Asthma Surgical History Hx of section H/O bilateral breast reduction surgery No pertinent past surgical history Family History Mother Diabetes Asthma Father Colon cancer Hypertension Social History Housing: House Alcohol intake: current Alcohol intake frequency: holidays/special occasions only Patient Tobacco Use Status: Never used Tobacco e-Cigarette/Vaping Use: Never Used Second Hand Smoke Exposure: No service: No Current occupational status: employed 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 1. Little interest or pleasure in doing things: not at all 2. Feeling down, depressed, or hopeless: several days 3. Trouble falling or staying asleep, or sleeping too much: several days 4. Feeling tired or having little energy: several days 5. Poor appetite or overeating: several days 6. Feeling bad about yourself - or that you are a failure or have let yourself or your family down: not at all 7. Trouble concentrating on things, such as reading the newspaper or watching television: not at all 8. Moving or speaking so slowly that other people could have noticed. Or the opposite - being so fidgety or restless that you have been moving around a lot more than usual: not at all 9. Thoughts that you would be better off or of hurting yourself in some way: not at all Total score: 4 Depression Screening Interpretation: Negative Depression Screening Done: Yes 42239 - PHQ-9 Billing: Yes Source: Developed by Drs. Darrel Lamb, Tori Miguel, Josep Pink and colleagues, with an educational eleno from [employer]. Thrive Questionnaire Date Thrive assessed: 10/25/24 I am a: Patient What is your living situation today?: I have a steady place to live Within the past 12 months, did the food you bought not last and you didn't have the money to get more?: Never true Within the past 12 months, did you worry whether your food would run out before you got money to buy more?: Never true Do you have trouble paying for medicines?: No Do you have trouble getting transportation to medical appointments?: No Do you have trouble paying your heating and electricity bill?: No Do you have trouble taking care of your child, family member or friend?: No Do you have trouble with day-to-day activities such as bathing, preparing meals, shopping, managing finances, etc.?: No Are you currently unemployed and looking for a job?: No Are you interested in more education?: No Please select the resources that you would like help with: None Currently or been in a relationship where the following occur: No concerns reported THRIVE Score: 0 AUDIT C Alcohol Use Questionnaire (AUDIT-C) 1. How often do you have a drink containing alcohol?: Monthly or less 2. How many drinks containing alcohol do you have on a typical day when you are drinking?: 1 or 2 3. How often do you have six or more drinks on one occasion?: Never Total Score: 1 RUFINA-7 AMB Questionnaire RUFINA-7 Date RUFINA - 7 assessed: 10/25/24 Feeling nervous, anxious, or on edge: 0 = Not at all Not being able to stop or control worryin = Not at all Worrying too much about different things: 0 = Not at all Trouble relaxin = Not at all Being so restless that it is hard to sit still: 0 = Not at all Becoming easily annoyed or irritable: 0 = Not at all Feeling afraid as if something awful might happen: 0 = Not at all Total RUFINA-7 score (0-4 normal; 5-9 mild; 10-14 moderate; 15-21 severe): 0 Source: Developed by Drs. Darrel Lamb, Tori Miguel, Josep Pink and colleagues, with an educational eleno from [employer]. RUFINA-7 Assessment Billing RUFINA-7 Assessment Tool: RUFINA-7 Assessment 76377 Review of Systems Const All systems reviewed & are unremarkable except as noted in HPI and below Eyes Reports no additional complaints ENT Reports no additional complaints Card Reports no additional complaints Resp Reports no additional complaints GI Reports no additional complaints Reports no additional complaints Physical exam (Primary Care) Vital Signs: Last Vital Signs Temp 98.0 F 10/25/24 11:05 Pulse 78 10/25/24 11:05 Resp 18 10/25/24 11:05 BP 106/68 10/25/24 11:05 Pulse Ox 98 10/25/24 11:05 Oxygen Delivery Method Room Air 10/25/24 11:05 BMI result Body Mass Index 30.7 Tobacco/Smoking Status: Tobacco use Status Tobacco use date assessed 10/25/24 10/25/24 11:12 Patient Tobacco Use Status Never used Tobacco 10/25/24 11:12 e-Cigarette/Vaping Use Never Used 10/25/24 11:12 PHQ-9: PHQ-9 Score PHQ-9: Total score 4 10/25/24 11:12 Depression Screening Interpretation: Negative Thrive Assessment: Date of Thrive Assessment Date Thrive assessed 10/25/24 10/25/24 11:13 Currently or been in a relationship where the following occur: No concerns reported Const General: no acute distress [facility] General nose exam: Normal external nose present Eyes General: appearance normal, both eyes and all related structures Resp Effort & Inspection: normal respiratory effort Auscultation: clear to auscultation bilaterally Cardio Rhythm: regular rhythm Heart sounds: S1 normal heart sound present and S2 normal heart sound present GI Inspection: Yes normal to inspection Palpation (GI): Soft to palpation Percussion: Yes normal to percussion Coding Level of Care Code Est Pt Level 3 (91297) Diagnoses Allergic rhinitis due to animal (cat) (dog) hair and dander J30.81 Asthma J45.909 Additional Codes RUFINA-7 Assessment Billing - RUFINA-7 Assessment Tool: RUFINA-7 Assessment 76524 ([id number]) PHQ-9 - 61425 - PHQ-9 Billing: Yes ([id number]) Assessment & Plan Assessment & Plan (1) Allergic rhinitis due to animal (cat) (dog) hair and dander: Comment: Patient referred to databases computer consultant for Immunotherapy Code(s): J30.81 - Allergic rhinitis due to animal (cat) (dog) hair and dander Category: Medical Plan: Referred to databases computer consultant (2) Asthma: Comment: PFT 09/22 FEV1 84% Code(s): J45.909 - Unspecified asthma, uncomplicated Category: Medical Plan: Continue Breo montelukast and albuterol PRN Orders: Orders Complete Blood Count Auto Diff 3 Months Z00.00 - Encounter for general adult medical examination without abnormal findings Vitamin D 25-OH Total 3 Months Z00.00 - Encounter for general adult medical examination without abnormal findings Comprehensive [place]. Panel Fast 3 Months Z00.00 - Encounter for general adult medical examination without abnormal findings Lipid Panel 3 Months Z00.00 - Encounter for general adult medical examination without abnormal findings TSH reflex Free T4 3 Months Z00.00 - Encounter for general adult medical examination without abnormal findings Referrals Allergy & Immunology Referral J30.81 - Allergic rhinitis due to animal (cat) (dog) hair and dander
== END 2024-10-25 12:15 | disposition home or self-care (01) ==
LOC: HO.HMCC 11:03
PROVIDERS: PCP Internal Medicine; Visit Provider Internal Medicine
DX: J30.81 Allergic rhinitis due to animal (cat) (dog) hair and dander (principal)

== ENCOUNTER → 2024-10-25 11:02 | Outpatient (BNVA) | payer OTHER, SELFPAY | PROVIDERS: PCP Internal Medicine; Visit Provider Internal Medicine | DX: J30.81 Allergic rhinitis due to animal (cat) (dog) hair and dander (principal); J45.909 Unspecified asthma, uncomplicated; Z79.899 Other long term (current) drug therapy | CPT/HCPCS: 96127 ==

== ENCOUNTER 2025-03-01 12:04 | Outpatient (AMB) | payer OTHER, SELFPAY ==
[2025-03-01 12:05] VITALS: BP 110/70; PULSE 68; RESP 19; TEMP 36.8; O2SAT 99; BMI 29.9
--- NOTE | 2025-03-01 12:05 | MHC.PC.OV ---
Vital Signs 03/01/25 12:05 Height 4 ft 11 in Weight 148 lb BMI 29.9 BP 110/70 Blood Pressure Location Rt brachial Position Sitting Respiration 19 Pulse 68 Pulse Source Pulse Oximeter Temp 98.3 F Temp Source Oral Pulse Oximetry (%) 99 Oxygen Delivery Method Room Air Intake Visit Reasons: PE Intake Note: Pt is here today for PE. Allergies levofloxacin (Levaquin) Allergy (Unknown, Verified 03/01/25 12:07) stomach pain vomiting cat dander Allergy (Verified 03/01/25 12:07) induces asthma,itchy dog dander Allergy (Verified 03/01/25 12:07) induces asthma, itchy Medication List - Last Reconciled 03/01/25 by Sue Gallego MD albuterol sulfate 90 mcg/actuation 2 puffs inhalation Q6H Breo Ellipta 200-25 mcg/dose (fluticasone furoate-vilanterol) 1 inh inhalation DAILY NS montelukast 10 mg PO DAILY Tobacco use date assessed: 03/01/25 Dental Screening Dental Screen Date: 09/12/24 HPI PE HPI Details Pt presents for PE. Pt c/o nasal congestion, dry cough for 3 days. Pt denies fever, pleurisy, wheezing. Pt c/o episodic LLQ abd pain occasionally with diarrhea after having glass of wine for the last 4 months, lasting for few hours. Patient denies change in bowel habits constipation diarrhea hematochezia melena hematuria dysuria. [facility] Medical History (Updated 03/01/25 @ 15:34 by Sue Gallego MD) Abdominal pain Normal pelvic exam Pelvic fracture Anxiety UTI (urinary tract infection) Vaginitis Bunion of great toe of right foot Blepharitis of eyelid of left eye Annual physical exam Allergic rhinitis Asthma Surgical History Hx of section H/O bilateral breast reduction surgery No pertinent past surgical history Family History Mother Diabetes Asthma Father Colon cancer Hypertension Social History Housing: House Alcohol intake: current Alcohol intake frequency: holidays/special occasions only Patient Tobacco Use Status: Never used Tobacco e-Cigarette/Vaping Use: Never Used Second Hand Smoke Exposure: No service: No Current occupational status: employed 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 1. Little interest or pleasure in doing things: not at all 2. Feeling down, depressed, or hopeless: several days 3. Trouble falling or staying asleep, or sleeping too much: several days 4. Feeling tired or having little energy: several days 5. Poor appetite or overeating: several days 6. Feeling bad about yourself - or that you are a failure or have let yourself or your family down: not at all 7. Trouble concentrating on things, such as reading the newspaper or watching television: not at all 8. Moving or speaking so slowly that other people could have noticed. Or the opposite - being so fidgety or restless that you have been moving around a lot more than usual: not at all 9. Thoughts that you would be better off or of hurting yourself in some way: not at all Total score: 4 Depression Screening Interpretation: Negative Depression Screening Done: Yes Source: Developed by Drs. Darrel Lamb, Tori Miguel, Josep Pink and colleagues, with an educational eleno from [employer]. Thrive Questionnaire Date Thrive assessed: 10/25/24 I am a: Patient What is your living situation today?: I have a steady place to live Within the past 12 months, did the food you bought not last and you didn't have the money to get more?: Never true Within the past 12 months, did you worry whether your food would run out before you got money to buy more?: Never true Do you have trouble paying for medicines?: No Do you have trouble getting transportation to medical appointments?: No Do you have trouble paying your heating and electricity bill?: No Do you have trouble taking care of your child, family member or friend?: No Do you have trouble with day-to-day activities such as bathing, preparing meals, shopping, managing finances, etc.?: No Are you currently unemployed and looking for a job?: No Are you interested in more education?: No Please select the resources that you would like help with: None Currently or been in a relationship where the following occur: No concerns reported THRIVE Score: 0 RUFINA-7 AMB Questionnaire RUFINA-7 Date RUFINA - 7 assessed: 10/25/24 Feeling nervous, anxious, or on edge: 0 = Not at all Not being able to stop or control worryin = Not at all Worrying too much about different things: 0 = Not at all Trouble relaxin = Not at all Being so restless that it is hard to sit still: 0 = Not at all Becoming easily annoyed or irritable: 0 = Not at all Feeling afraid as if something awful might happen: 0 = Not at all Total RUFINA-7 score (0-4 normal; 5-9 mild; 10-14 moderate; 15-21 severe): 0 Source: Developed by Drs. Darrel Lamb, Tori Miguel, Josep Pink and colleagues, with an educational eleno from [employer]. Review of Systems Const All systems reviewed & are unremarkable except as noted in HPI and below Reports no additional complaints Eyes Reports no additional complaints ENT Reports no additional complaints Card Reports no additional complaints Resp Reports no additional complaints GI Reports no additional complaints Reports no additional complaints Physical exam (Primary Care) Vital Signs: Last Vital Signs Temp 98.3 F 03/01/25 12:05 Pulse 68 03/01/25 12:05 Resp 19 03/01/25 12:05 BP 110/70 03/01/25 12:05 Pulse Ox 99 03/01/25 12:05 Oxygen Delivery Method Room Air 03/01/25 12:05 BMI result Body Mass Index 29.9 Tobacco/Smoking Status: Tobacco use Status Tobacco use date assessed 03/01/25 03/01/25 12:11 Patient Tobacco Use Status Never used Tobacco 03/01/25 12:11 e-Cigarette/Vaping Use Never Used 03/01/25 12:11 PHQ-9: PHQ-9 Score PHQ-9: Total score 4 03/01/25 12:46 Depression Screening Interpretation: Negative Thrive Assessment: Date of Thrive Assessment Date Thrive assessed 10/25/24 03/01/25 12:11 Currently or been in a relationship where the following occur: No concerns reported Const General: no acute distress HENMT Head: Yes normal to inspection Ears: hearing grossly normal bilaterally Face and sinus: Yes normal facial exam Mouth: Normal oral and palatal mucosa present Throat: Yes posterior oropharynx normal Eyes General: appearance normal, both eyes and all related structures Neck Neck: Yes no lymphadenopathy and Yes supple Resp Effort & Inspection: normal respiratory effort Auscultation: clear to auscultation bilaterally Cardio Rhythm: regular rhythm Heart sounds: S1 normal heart sound present and S2 normal heart sound present Coding Level of Care Code Est Pt Prev Care 40-64y(03753) Diagnoses Annual physical exam Z00.00 Abdominal pain R10.9 Asthma J45.909 Assessment & Plan Assessment & Plan (1) Annual physical exam: Code(s): Z00.00 - Encounter for general adult medical examination without abnormal findings Category: Medical Plan: Well-balanced diet regular physical activity discussed with the patient. She will return for fasting blood work, patient is up-to-date with the mammogram and Pap smear by child development teacher (2) Abdominal pain: Comment: Left lower quadrant after drinking wine Code(s): R10.9 - Unspecified abdominal pain Category: Medical Plan: For intermittent left lower quadrant abdominal pain check Cologuard, if the symptoms persist CT of the abdomen pelvis will be obtained (3) Asthma: Comment: PFT 09/22 FEV1 84% Code(s): J45.909 - Unspecified asthma, uncomplicated Category: Medical Plan: Continue Breo and montelukast Orders: Orders Vitamin D 25-OH Total Today D64.9 - Anemia, unspecified, Z00.00 - Encounter for general adult medical examination without abnormal findings Lipid Panel Today D64.9 - Anemia, unspecified, Z00.00 - Encounter for general adult medical examination without abnormal findings Comprehensive [place]. Panel Fast Today D64.9 - Anemia, unspecified, Z00.00 - Encounter for general adult medical examination without abnormal findings Complete Blood Count Auto Diff Today D64.9 - Anemia, unspecified, Z00.00 - Encounter for general adult medical examination without abnormal findings TSH reflex Free T4 Today D64.9 - Anemia, unspecified, Z00.00 - Encounter for general adult medical examination without abnormal findings Referrals Cologuard Test Z12.11 - Encounter for screening for malignant neoplasm of colon, Z12.12 - Encounter for screening for malignant neoplasm of rectum
== END 2025-03-01 13:08 | disposition home or self-care (01) ==
LOC: HO.HMCC 12:05
PROVIDERS: PCP Internal Medicine; Visit Provider Internal Medicine
DX: Z00.00 Encounter for general adult medical examination without abnormal findings (principal); R10.9 Unspecified abdominal pain; J45.909 Unspecified asthma, uncomplicated